=== PATIENT | female | born 1970 | race Caucasian/White ===

== ENCOUNTER 2019-01-28 00:20 | Inpatient (IN) | payer BC, MEDICAID ==
[2019-01-28 01:02] VITALS: BMI 40.3
[2019-01-28] MEDS ORDERED: hydrALAZINE 20 MG/ML VIAL ONE (01:05)
[2019-01-28] MEDS: hydrALAZINE 20 MG/ML VIAL SLOW IVP PRN ×6 (01:10→17:34)
[2019-01-28] MEDS ORDERED: Magnesium Sulfate 20 gm/500 ml 20 GM/500 ML BAG ONE (01:19)
[2019-01-28] MEDS ORDERED: Promethazine HCl 25 MG/ML VIAL IM PRN ×4 (01:19→15:33)
[2019-01-28] MEDS ORDERED: Calcium Gluc 4.6 MEQ/10 ML (100 MG/ML) SLOW IVP PRN (01:24)
[2019-01-28] MEDS ORDERED: Magnesium Sulfate 20 GM/WATER 500 ML BAG IVPB SCH (01:30)
[2019-01-28] MEDS ORDERED: Magnesium Sulfate 20 gm/500 ml 20 GM/500 ML BAG IVPB SCH (01:30)
[2019-01-28] MEDS ORDERED: CEFAZOLIN 2 GM in Premix Bag 1 BAG IVPB SCH (01:30)
[2019-01-28] MEDS ORDERED: Labetalol HCl 100 MG/20 ML VIAL SLOW IVP PRN (01:33)
--- NOTE | 2019-01-28 01:36 | PDOC.LDHP ---
Labor and Delivery H&P Chief complaint: other HPI: y/o at 37w3d, patient of Dr. Pete, presents with elevated BPs at home. Patient reports she has been checking her BPs and they have become more elevated over the weekend. She had a mild headache yesterday but not much of one today. Blurry vision but no scotoma, no RUQ pain. +FM. Denies VB, LOF, regular ctx, or other concerns. ROS neg for HEENT, cv, pulm, gi, gu, neuro, psych, skin, musculoskeletal or constitutional symptoms other than mentioned above. OB History Details: 1 prior LTCS for Twins, IVF Current complications: hypertension, di/di twins Past Medical History: CHTN Current medications: pre-lauren vitamins, other (ASA 81mg until 34 weeks) Previous surgical history: low tranverse CS (x1), other (BTL) Allergies/Adverse Reactions: Allergies Allergy/AdvReac Type Severity Reaction Status Date / Time No Allergy Information Allergy Unverified 01/28/19 01:30 Available Social history: none - Physical Exam Abnormal vital signs: Severe range BPs General: NAD, resting Lungs: nonlabored breathing Abdomen: gravid Extremeties: no edema FHT: category 1 ((x2) 130s, mod variability, + accels, no decels) Mina contractions every: irregular - OB Labs Blood type: A RH: positive Antibody Screen: negative HIV: negative RPR: negative HEPSAg: negative 1 hour GCT: negative Rubella: immune - Assessment 49 y/o at 37w3d with elevated BPs at term. Baseline on chart review 130 -150s/80-100s throughout . - Plan Plan: admit to L&D, to OR for section, informed consent obtained, magnesium for seizure prophylaxis, anesthesia consult for pain management -: BPs treated with Hydralazine 10mg, BPs down to 150s/80s. Labs pending. Will get type and cross x 2. Planned RLTCS later this morning if stable, if not, will proceed ACACIA. Dr. Pete notified.
[2019-01-28 01:55] LABS: Hemoglobin 12.6 g/dL (12.0-16.0); Mean Corpuscular HGB CONC 36.1 g/dL (32.0-36.0); Mean Corpuscular Hemoglobin 31.7 pg (27.0-31.0); Mean Corpuscular Volume 87.9 fL (78.0-98.0); Mean Platelet Volume 11.2 fL (7.4-10.4); Platelet Count 165 thou/uL (130-400); RBC Distribution Width 12.4 % (11.5-14.5); Red Blood Cell (RBC) Count 3.96 mill/uL (4.20-5.40)
[2019-01-28 01:59] LABS: ALT (SGPT) 15 U/L (8-55); AST (SGOT) 28 U/L (5-34); Albumin 2.9 g/dL (3.5-5.0); Alkaline Phosphatase 143 U/L (40-110); Anion Gap 15 mmol/L (10-20); BUN (Urea Nitrogen) 12 mg/dL (7.0-18.7); Bilirubin, Total 0.3 mg/dL (0.2-1.2); Calc. Creatinine Clearance 153 mL/min (70-130); Calcium 9.7 mg/dL (7.8-10.44); Carbon Dioxide 19 mmol/L (22-29); Chloride 108 mmol/L (98-107); Estimated GFR-MDRD 82; Globulin 2.2 g/dL (2.4-3.5); Glucose 78 mg/dL (70-105); Potassium 4.9 mmol/L (3.5-5.1); Protein, Total 5.1 g/dL (6.0-8.3); Sodium 137 mmol/L (136-145)
[2019-01-28 02:04] LABS: Creatinine, Urine 176.73 mg/dL (47-110)
[2019-01-28 02:18] LABS: HBSAg Index 0.12 S/CO (0-0.99); Hep B Surf Ag Non-Reactive S/CO (NonReactive)
[2019-01-28] MEDS ORDERED: Butorphanol Tartrate 1 MG/ML VIAL SLOW IVP SCH (04:30)
[2019-01-28] MEDS: Ondansetron PF 4 MG/2 ML Vial IVP PRN ×2 (06:00→10:35)
[2019-01-28 06:54] LABS: Syphilis Antibody Nonreactive (Nonreactive); Syphilis Antibody Index 0.07 S/CO (<1.00 Non-Reactive)
[2019-01-28] MEDS ORDERED: HYDROmorphone 2 MG/ML VIAL SLOW IVP PRN ×3 (09:58→15:33)
[2019-01-28] MEDS ORDERED: diphenhydrAMINE 50 MG/ML VIAL IVP PRN ×3 (09:58→15:33)
[2019-01-28] MEDS ORDERED: Ketorolac Tromethamine 30 MG/ML VIAL IVP PRN ×3 (09:58→15:33)
[2019-01-28] MEDS ORDERED: Ondansetron HCl/PF 4 MG/2 ML Vial IVP PRN ×2 (09:58→15:33)
[2019-01-28] MEDS ORDERED: Ondansetron PF 4 MG/2 ML Vial IVP PRN ×3 (09:58→15:33)
[2019-01-28] MEDS ORDERED: L&D-Morphine 4 MG/ML VIAL SLOW IVP PRN ×3 (09:58→15:33)
[2019-01-28] MEDS ORDERED: Promethazine HCl 25 MG SUPP PR PRN ×3 (09:58→15:33)
[2019-01-28] MEDS ORDERED: Meperidine HCl/PF 25 MG/ML VIAL SLOW IVP PRN ×3 (09:58→15:33)
[2019-01-28] MEDS ORDERED: Naloxone HCl 0.4 mg/ml Vial IV PRN ×3 (09:58→15:33)
[2019-01-28] MEDS ORDERED: Naloxone HCl 0.4 mg/ml Vial IVP PRN ×6 (09:58→15:33)
[2019-01-28] MEDS ORDERED: Communication Order-Pharmacy FS SCH ×3 (10:00→15:45)
[2019-01-28] MEDS ORDERED: Ketorolac Tromethamine 30 MG/ML VIAL IVP SCH ×2 (10:00→15:45)
[2019-01-28] MEDS: Bicitra 30 ML UDCUP PO SCH ×2 (10:12→12:14)
[2019-01-28] MEDS ORDERED: Dexamethasone 4 mg/ml Vial ONE (10:22)
[2019-01-28] MEDS ORDERED: Oxytocin 10 UNITS/ML VIAL ONE ×3 (10:22→11:45)
[2019-01-28] MEDS ORDERED: ePHEDrine/0.9% NaCl/PF SYRINGE 50 mg/10 ml ONE ×2 (10:22→10:36)
[2019-01-28] MEDS ORDERED: Fentanyl 100 MCG/2 ML VIAL ONE (10:22)
[2019-01-28] MEDS ORDERED: Ondansetron PF 4 MG/2 ML Vial ONE ×2 (10:22→10:36)
[2019-01-28] MEDS ORDERED: PHENYLEPHRINE-NS 100 MCG/ML 10 ML SYRINGE ONE ×2 (10:22→10:36)
[2019-01-28] MEDS ORDERED: Ketorolac Tromethamine 30 MG/ML VIAL ONE ×2 (10:22→10:36)
[2019-01-28] MEDS ORDERED: MORPHINE 5 MG/10 ML PF VIAL ONE (10:25)
[2019-01-28] MEDS ORDERED: Dexamethasone 20 MG/5 ML VIAL ONE (10:36)
[2019-01-28] MEDS ORDERED: Misoprostol 200 MCG TAB ONE ×2 (10:57→12:21)
[2019-01-28] MEDS ORDERED: Carboprost 250 MCG/ML AMP ONE (10:58)
[2019-01-28] MEDS ORDERED: Promethazine HCl 25 MG/ML VIAL ONE (11:32)
[2019-01-28] MEDS ORDERED: Midazolam HCl 2 mg/2 ml Vial ONE (11:33)
[2019-01-28] MEDS ORDERED: Misoprostol 200 MCG TAB PR PRN (12:31)
[2019-01-28] MEDS ORDERED: diphenhydrAMINE 25 MG CAP PO PRN (12:31)
[2019-01-28] MEDS ORDERED: Simethicone Chewable 80 MG TAB PO PRN (12:31)
[2019-01-28] MEDS ORDERED: Bisacodyl 10 MG SUPP PR PRN (12:31)
[2019-01-28] MEDS ORDERED: Lanolin Ointment 7 GM TUBE TOP PRN (12:31)
[2019-01-28] MEDS ORDERED: HYDROcodone/Acetaminophen 5/325 mg Tablet PO PRN ×2 (22:00)
[2019-01-29] MEDS ORDERED: HYDROcodone/Acetaminophen 5/325 mg Tablet PO PRN ×2 (03:45)
[2019-01-29 05:36] LABS: Hemoglobin 10.3 g/dL (12.0-16.0); Mean Corpuscular HGB CONC 34.4 g/dL (32.0-36.0); Mean Corpuscular Hemoglobin 30.5 pg (27.0-31.0); Mean Corpuscular Volume 88.4 fL (78.0-98.0); Mean Platelet Volume 9.9 fL (7.4-10.4); Platelet Count 169 thou/uL (130-400); RBC Distribution Width 12.5 % (11.5-14.5); White Blood Cell (WBC) Count 9.3 thou/uL (4.8-10.8)
[2019-01-29] MEDS ORDERED: Adacel (T-DAP) 0.5 ML SYRINGE IM ONE (09:00)
[2019-01-29] MEDS ORDERED: Prenatal Vitamin 1 TAB PO SCH ×2 (09:00)
[2019-01-29] MEDS ORDERED: Lanolin Ointment 7 GM TUBE TOP PRN (11:35)
[2019-01-29] MEDS ORDERED: Simethicone Chewable 80 MG TAB PO PRN (11:35)
[2019-01-29] MEDS ORDERED: Zolpidem Tartrate 5 MG TAB PO PRN (11:35)
[2019-01-29] MEDS ORDERED: diphenhydrAMINE 25 MG CAP PO PRN (11:35)
[2019-01-29] MEDS ORDERED: Bisacodyl 10 MG SUPP PR PRN (11:35)
[2019-01-29] MEDS ORDERED: Ondansetron PF 4 MG/2 ML Vial IVP PRN (11:35)
[2019-01-29] MEDS ORDERED: Promethazine HCl 25 MG/ML VIAL IM PRN (11:35)
[2019-01-29] MEDS ORDERED: hydrALAZINE 20 MG/ML VIAL SLOW IVP PRN (11:35)
[2019-01-29] MEDS ORDERED: Ibuprofen 200 MG TAB PO SCH (14:00)
[2019-01-29] MEDS ORDERED: Ibuprofen 800 MG TAB PO SCH (14:00)
[2019-01-29] MEDS: HYDROcodone/Acetaminophen 5/325 mg Tablet PO PRN ×2 (14:36→21:04)
[2019-01-29] MEDS: Docusate Calcium (SURFAK) 240 MG CAP PO SCH (21:03)
[2019-01-29] MEDS: Ibuprofen 800 MG TAB PO SCH ×2 (21:03→22:31)
[2019-01-30] MEDS: HYDROcodone/Acetaminophen 5/325 mg Tablet PO PRN ×4 (01:16→16:27)
[2019-01-30] MEDS: Ibuprofen 800 MG TAB PO SCH ×3 (05:39→20:25)
[2019-01-30] MEDS ORDERED: Varicella virus, LIVE 0.5 ML VIAL SC ONE (09:00)
[2019-01-30] MEDS ORDERED: Measles/Mumps/Rubella 10 MCG/0.5 ML VIAL SC ONE (09:00)
[2019-01-30] MEDS: Docusate Calcium (SURFAK) 240 MG CAP PO SCH ×2 (09:41→20:24)
--- NOTE | 2019-01-30 13:10 | PDOC.PP ---
Post Progress Note Post Day #: 2 PO intake tolerated: yes Flatus: yes Ambulation: yes Vital Signs (12 hours) Temp Pulse Resp BP BP Pulse Ox 01/30/19 09:51 98.4 F 73 20 154/76 H 97 01/30/19 05:35 98.4 F 77 18 143/76 H 95 Weight Weight 235 lb - Physical Examination General: NAD Cardiovascular: no m/r/g, RRR Respiratory: clear to auscultation bilaterally, non-labored breathing Abdominal: + bowel sounds, lochia Extremities: negative homans (B) Skin: CS incision dry & intact, no rash Neurological: no gross focal deficits Psychiatric: A&Ox3, normal affect (DC tomorrow planned) Result Diagrams: 01/29/19 05:12 01/28/19 01:29 Additional Labs: Post Labs Blood Type A POSITIVE 01/28/19 02:21 Hep Bs Antigen Non-Reactive S/CO (NonReactive) 01/28/19 01:30
--- NOTE | 2019-01-30 13:10 | PDOC.PP ---
Post Progress Note Post Day #: 1 PO intake tolerated: yes Flatus: yes Ambulation: yes Vital Signs (12 hours) Temp Pulse Resp BP BP Pulse Ox 01/30/19 09:51 98.4 F 73 20 154/76 H 97 01/30/19 05:35 98.4 F 77 18 143/76 H 95 Weight Weight 235 lb - Physical Examination General: NAD Cardiovascular: no m/r/g, RRR Respiratory: clear to auscultation bilaterally, non-labored breathing Abdominal: + bowel sounds, lochia, no distention Extremities: negative homans (B) Skin: CS incision dry & intact, no rash Neurological: no gross focal deficits Psychiatric: A&Ox3, normal affect (DC MAG at 24 hours PP) Result Diagrams: 01/29/19 05:12 01/28/19 01:29 Additional Labs: Post Labs Blood Type A POSITIVE 01/28/19 02:21 Hep Bs Antigen Non-Reactive S/CO (NonReactive) 01/28/19 01:30
[2019-01-30] MEDS ORDERED: NIFEdipine XL 30 MG TAB PO SCH (13:45)
[2019-01-31 08:19] VITALS: BP 158/74; TEMP 98.5
[2019-01-31] MEDS: Docusate Calcium (SURFAK) 240 MG CAP PO SCH (08:54)
--- NOTE | 2019-01-31 09:25 | OP ---
DATE OF PROCEDURE: 01/28/2019 DATE OF SERVICE: 01/28/2019, at [address] Standard Time. PREOPERATIVE DIAGNOSES: 1. Intrauterine at 37 weeks and 3 days with in vitro fertilization resulting in fraternal male twins. 2. Rapid onset severe preeclampsia superimposed on chronic hypertension. 3. Advanced maternal age. POSTOPERATIVE DIAGNOSES: 1. Intrauterine at 37 weeks and 3 days with in vitro fertilization resulting in fraternal male twins. 2. Rapid onset severe preeclampsia superimposed on chronic hypertension. 3. Advanced maternal age. PROCEDURE PERFORMED: Repeat low-transverse section for twins. FINDINGS: Baby A; viable male weighing 2671 g or 5 pounds 14 ounces, Apgars 8 and 9. Baby B was a viable male infant weighing 3119 g or 6 pounds 14 ounces, Apgars of 7 and 9. QUANTITATIVE BLOOD LOSS: 929 mL. COMPLICATIONS: Thin lower uterine segment requiring additional suturing to repair a central defect in that area. A definitive window was not seen at the time of delivery. DETAILS OF THE PROCEDURE: The patient was consented and taken back to the operating room where spinal anesthesia was found to be adequate. She was then prepped and draped in the normal sterile fashion. A timeout was performed by the entire operative team. The incision was then marked with a marking pen tested using sharp pickups. An incision was then made with a scalpel. The incision was carried through the adipose tissue down to the underlying rectus fascia using both sharp dissection as well as cautery. Once the fascia was identified, it was incised in the midline and then the fascial incision was carried through in both lateral directions using sharp as well as cautery dissection techniques. Next, the superior aspect of the rectus fascia was grasped with 2 Dereck clamps, which was tented up and the rectus muscles were dissected off using blunt dissection as well as cautery dissection. Similarly, the inferior aspect of the fascial incision was grasped with 2 Dereck clamps, tented up and the rectus muscles were dissected off bluntly as well as sharply. Next, the rectus muscles were in the midline and the peritoneum identified. The peritoneum was then carefully grasped with 2 hemostats and entered sharply. The peritoneal incision was extended superiorly and inferiorly and bladder blade was placed in the lower abdomen. At this point, the uterus was identified and the bladder flap was then developed using pickups with teeth as well as Metzenbaum scissors in both lateral directions. The bladder flap was then dissected downwards using the gripper machine operator's finger as well as Metzenbaum scissors. The bladder blade was replaced. The lower uterine segment was then identified and entered sharply using a clean scalpel. The uterine incision was then dissected downwards until thin layer of muscle remained and this was entered bluntly using a hemostat to avoid any injury to the baby. The uterine incision was then stretched using two fingers in both lateral directions. An amniotomy was performed artificially using a hemostat and baby A was delivered using fundal pressure in a gentle fashion in a vertex presentation. Once out, the baby A's mouth and nose were bulb suctioned, cord clamped and cut, and the baby was handed to waiting attendants. Next, baby B was delivered in a breech presentation without difficulty. Once out , the baby B's mouth and nose were bulb suctioned, cord clamped and cut, and the baby was handed to waiting attendants. The uterus was exteriorized, cleared of all clots and debris and the uterine incision was repaired with #1 Monocryl in a running locking fashion. A 2nd suture of the same type was used to obtain complete hemostasis at the uterine incision. The bladder flap was reapproximated using 3-0 Monocryl. Next, patient's left and right adnexa were inspected and appeared to be within normal limits. The posterior cul-de-sac was blotted dry and hemostasis assured. One more look at the uterine incision demonstrated hemostasis. Next, the uterus was replaced back within the abdomen. The peritoneum was reapproximated using 2-0 Monocryl without difficulty. The rectus muscles were then allowed to come back together and 0 chromic was used to aid in reapproximation of the muscle as necessary. The rectus fascia was then reapproximated in a running fashion using 0 Vicryl suture. The adipose tissue was then examined and appeared to be well approximated without any obvious separations. Finally, the skin was reapproximated with 3-0 Monocryl on a Alexis needle without difficulty and Dermabond adhesive was applied to the skin. Once the glue was dry, the drapes were removed and the patient was transferred to an ambulatory bed where she was taken to recovery awake and in stable condition. Sponge, lap, and needle counts were correct x3. Following delivery, the patient was sent back to Labor and Delivery, where she underwent 24 hours of magnesium sulfate therapy for severe preeclampsia. Job ID: [id number] MTDD
== END 2019-01-31 10:31 | disposition home or self-care (01) | DRG 788 ==
LOC: L&D/OP 00:20 → L&D 01:29 → 3SW 01-29 17:56
PROVIDERS: ADMIT Obstetrics & Gynecology; ATTEND Obstetrics & Gynecology
PROC: 10D00Z1 Extraction of Products of Conception, Low, Open Approach (ICD-10-PCS; principal; 2019-01-28)
PROC: 3E0234Z Introduction of Serum, Toxoid and Vaccine into Muscle, Percutaneous Approach (ICD-10-PCS; 2019-01-29)
DX: O10.92 Unspecified pre-existing hypertension complicating childbirth (principal); Z3A.37 37 weeks gestation of pregnancy; Z37.2 Twins, both liveborn; Z79.82 Long term (current) use of aspirin; Z23 Encounter for immunization; O30.043 Twin pregnancy, dichorionic/diamniotic, third trimester; O34.211 Maternal care for low transverse scar from previous cesarean delivery
CPT/HCPCS: 36415; 36416; 51702; 80053; 82570; 83735; 84156; 85027; 86780; 86850; 86900; 86901; 87340; 88307; 99285; J0360; J0595; J0690; J1100; J1885; J2250; J2274; J2405; J2550; J2590; J3010; J3475; J3490